=== PATIENT | female | born 1970 | race Caucasian/White ===

== ENCOUNTER 2020-05-27 10:52 | Emergency (ER) | payer MEDICAID ==
[~2020-05-27] VITALS: Ht 165.1 cm; Wt 62.0 kg
[2020-05-27] MEDS ORDERED: KETOROLAC 30MG/ML VIAL IM ONE (12:30)
[2020-05-27 13:30] VITALS: BP 111/72
[2020-06-05] MEDS ORDERED: IBUP-1523 MT (12:51)
== END 2020-05-27 13:47 | disposition home or self-care (01) ==
LOC: ER 10:52
DX: M77.32 Calcaneal spur, left foot (principal)
CPT/HCPCS: 71045; 73630; 81025; 96372; 99284; J1885

== ENCOUNTER 2020-11-21 10:59 | Emergency (ER) | payer MEDICAID ==
[~2020-11-21] VITALS: Ht 152.4 cm; Wt 55.0 kg
[~2020-11-21 10:59] MED LIST: IBUP-1523 MT
[2020-11-21] MEDS ORDERED: KETOROLAC 60MG/2ML VIAL IM ONE (11:15)
[2020-11-21 11:53] VITALS: BP 132/107
[2020-11-21 12:14] LABS: CLARITY URINE CLEAR (CLEAR); COLOR URINE YELLOW (YELLOW); KETONES URINE NEGATIVE (NEGATIVE); LEUKOCYTE ESTERASE URINE NEGATIVE (NEGATIVE); NITRITE URINE NEGATIVE (NEGATIVE); OCCULT BLOOD URINE NEGATIVE (NEGATIVE); PROTEIN URINE NEGATIVE (NEGATIVE); SPECIFIC GRAVITY URINE 1.047 (1.005-1.030); UROBILINOGEN URINE 0.2 E.U./dL (0.2-1.0)
[2020-11-21 12:27] LABS: BASOPHILS % 0.7 % (0.0-2.0); EOSINOPHILS % 0.9 % (0.0-5.0); HEMATOCRIT. 40.3 % (36.0-48.0); HEMOGLOBIN. 13.7 g/dL (12.0-16.0); LYMPHOCYTES % 25.8 % (20.0-50.0); MEAN CORPUSCULAR HEMOGLOBIN 30.7 pg (28.0-32.0); MEAN CORPUSCULAR VOLUME 90.2 fL (81.0-99.0); MEAN PLATELET VOLUME 8.4 fl (7.4-10.4); MONOCYTES % 8.1 % (2.0-8.0); NEUTROPHILS % 64.5 % (40.0-76.0); PLATELET 243 x1000/uL (130-400); RED BLOOD CELL COUNT 4.46 mill/uL (4.2-5.4); RED CELL DISTRIBUTION WIDTH 13.7 % (11.6-14.6)
[2020-11-21] MEDS ORDERED: IBUP-2028 MT (15:15)
== END 2020-11-21 15:32 | disposition home or self-care (01) ==
LOC: ER 10:59
DX: N23 Unspecified renal colic (principal); Z87.442 Personal history of urinary calculi; Z90.710 Acquired absence of both cervix and uterus
CPT/HCPCS: 36415; 74176; 80048; 81003; 81025; 85025; 87086; 96372; 99284; J1885

== ENCOUNTER 2020-11-22 21:16 | Emergency (ER) | payer MEDICAID ==
[~2020-11-22] VITALS: Ht 154.9 cm; Wt 71.0 kg
[~2020-11-22 21:16] MED LIST changes: +IBUP-2028 MT
[2020-11-22 23:30] LABS: CLARITY URINE CLOUDY (CLEAR); COLOR URINE YELLOW (YELLOW); KETONES URINE NEGATIVE (NEGATIVE); LEUKOCYTE ESTERASE URINE 2+ (NEGATIVE); NITRITE URINE NEGATIVE (NEGATIVE); OCCULT BLOOD URINE NEGATIVE (NEGATIVE); PROTEIN URINE NEGATIVE (NEGATIVE); SPECIFIC GRAVITY URINE 1.017 (1.005-1.030)
[2020-11-22] MEDS ORDERED: KETOROLAC 30MG/ML VIAL IM ONE (23:30)
[2020-11-23] MEDS ORDERED: CEFTRIAXONE 1 G PREMIX 50 ML IV ONE
[2020-11-23 00:02] VITALS: BP 151/86
[2020-11-23] MEDS ORDERED: LIDOCAINE HCL 1% 20ML VIAL (Pyxis) INJ INFIL ONE (00:30)
[2020-11-23] MEDS ORDERED: CEFTRIAXONE SODIUM 1 G/VIAL IM ONE (00:30)
[2020-11-23] MEDS ORDERED: CIPR-263 MT (01:40)
[2020-11-23] MEDS ORDERED: ACETAMINOPHEN 325MG TABLET PO ONE (01:45)
== END 2020-11-23 02:13 | disposition home or self-care (01) ==
LOC: ER 21:16
DX: N10 Acute pyelonephritis (principal); Z90.710 Acquired absence of both cervix and uterus; Z98.890 Other specified postprocedural states
CPT/HCPCS: 81003; 81025; 96372; 99284; J0696; J1885; J3490

== ENCOUNTER 2020-12-07 16:36 | Emergency (ER) | payer MEDICAID ==
[~2020-12-07] VITALS: Ht 152.4 cm; Wt 55.0 kg
[~2020-12-07 16:36] MED LIST changes: -IBUP-1523 MT; -IBUP-2028 MT; +OMEP40CA12 MT; +SUCR1TAB30 PO
[2020-12-07] MEDS ORDERED: MAGNESIUM/ALUMINUM HYDROXIDE/SIMETHICONE 30ML UDC PO STA (16:54)
[2020-12-07] MEDS ORDERED: ACETAMINOPHEN 325MG TABLET PO ONE (17:00)
[2020-12-07 17:20] LABS: CLARITY URINE CLEAR (CLEAR); COLOR URINE YELLOW (YELLOW); KETONES URINE NEGATIVE (NEGATIVE); LEUKOCYTE ESTERASE URINE TRACE (NEGATIVE); NITRITE URINE NEGATIVE (NEGATIVE); OCCULT BLOOD URINE NEGATIVE (NEGATIVE); PROTEIN URINE NEGATIVE (NEGATIVE); SPECIFIC GRAVITY URINE 1.007 (1.005-1.030); UROBILINOGEN URINE 0.2 E.U./dL (0.2-1.0)
[2020-12-07 18:48] VITALS: BP 135/87
== END 2020-12-07 19:50 | disposition home or self-care (01) ==
LOC: ER 16:41
DX: R10.9 Unspecified abdominal pain (principal); Z90.710 Acquired absence of both cervix and uterus
CPT/HCPCS: 81003; 81025; 99283

== ENCOUNTER 2021-07-18 15:31 | Emergency (ER) | payer MEDICAID ==
[~2021-07-18] VITALS: Ht 154.9 cm; Wt 68.0 kg
[~2021-07-18 15:31] MED LIST changes: -OMEP40CA12 MT; +OMEP40CA20 MT
[2021-07-18 15:39] VITALS: BP 119/73
[2021-07-18 17:35] LABS: CLARITY URINE CLEAR (CLEAR); COLOR URINE YELLOW (YELLOW); KETONES URINE TRACE (NEGATIVE); LEUKOCYTE ESTERASE URINE TRACE (NEGATIVE); NITRITE URINE NEGATIVE (NEGATIVE); OCCULT BLOOD URINE NEGATIVE (NEGATIVE); PH URINE 5.5 (4.5-8.0); PROTEIN URINE NEGATIVE (NEGATIVE); SPECIFIC GRAVITY URINE 1.023 (1.005-1.030); UROBILINOGEN URINE 0.2 E.U./dL (0.2-1.0)
[2021-07-18] MEDS ORDERED: SULF1TAB48 MT (17:54)
[2021-07-18] MEDS ORDERED: PYR200 PO (17:54)
[2021-07-18] MEDS ORDERED: HYDR-4622 TP (17:54)
[2021-07-18] MEDS ORDERED: NAPR-681 PO (17:54)
== END 2021-07-18 18:31 | disposition home or self-care (01) ==
LOC: ER 15:31
DX: S40.861A Insect bite (nonvenomous) of right upper arm, initial encounter (principal); N39.0 Urinary tract infection, site not specified; W57.XXXA Bitten or stung by nonvenomous insect and other nonvenomous arthropods, initial encounter; Y93.89 Activity, other specified; Y92.89 Other specified places as the place of occurrence of the external cause; Y99.8 Other external cause status
CPT/HCPCS: 81003; 99283

== ENCOUNTER 2023-11-09 09:13 | Emergency (ER) | payer MEDICAID ==
[~2023-11-09] VITALS: Ht 157.5 cm; Wt 70.0 kg
[~2023-11-09 09:13] MED LIST changes: +HYDR-4622 TP; +NAPR-681 PO; +PYR200 PO; +SULF1TAB48 MT
[2023-11-09 09:19] VITALS: O2SAT 100
[2023-11-09] MEDS: KETOROLAC 30MG/ML VIAL IM ONE (10:00)
[2023-11-09] MEDS ORDERED: IBUP-2029 PO (11:40)
[2023-11-09 12:05] VITALS: BP 128/66; PULSE 68; RESP 16; TEMP 97.7
== END 2023-11-09 12:14 | disposition home or self-care (01) ==
LOC: ER 09:13
DX: M79.662 Pain in left lower leg (principal); Z98.890 Other specified postprocedural states; Z90.710 Acquired absence of both cervix and uterus
CPT/HCPCS: 99285; 93971; 81025; 96372; J1885

== ENCOUNTER 2023-11-15 09:02 | Emergency (ER) | payer MEDICAID ==
[~2023-11-15] VITALS: Ht 157.5 cm; Wt 59.0 kg
[~2023-11-15 09:02] MED LIST changes: +IBUP-2029 PO
[2023-11-15 09:17] VITALS: O2SAT 100
[2023-11-15] MEDS: IBUPROFEN 600MG TABLET PO ONE (10:25)
[2023-11-15] MEDS: ACETAMINOPHEN 325MG TABLET PO ONE (10:26)
[2023-11-15] MEDS: PREDNISONE 20MG TABLET PO ONE (13:15)
[2023-11-15] MEDS ORDERED: TOPUD MT (14:36)
[2023-11-15] MEDS ORDERED: P50 MT (14:36)
[2023-11-15] MEDS ORDERED: IBUP-2029 PO (14:36)
[2023-11-15 15:18] VITALS: BP 114/52; PULSE 77; RESP 18; TEMP 98.2
== END 2023-11-15 15:28 | disposition home or self-care (01) ==
LOC: ER 09:33
DX: M54.40 Lumbago with sciatica, unspecified side (principal); M46.96 Unspecified inflammatory spondylopathy, lumbar region; Z90.710 Acquired absence of both cervix and uterus; Z79.899 Other long term (current) drug therapy
CPT/HCPCS: 99284; 81025; 72100; J7512

== ENCOUNTER 2024-06-18 23:39 | Emergency (ER) | payer MEDICAID ==
[~2024-06-18] VITALS: Ht 165.1 cm; Wt 84.2 kg
[~2024-06-18 23:39] MED LIST changes: +P50 MT; +TOPUD MT
[2024-06-19 00:26] VITALS: O2SAT 99
[2024-06-19] MEDS: HYDROCODONE/ACETAMINOPHEN 5/325MG TABLET PO ONE (01:20)
[2024-06-19] MEDS ORDERED: HYDR-4001 MT (03:47)
[2024-06-19 04:00] VITALS: BP 135/86; PULSE 69; RESP 17; TEMP 36.55848; O2SAT 99
== END 2024-06-19 04:15 | disposition home or self-care (01) ==
LOC: ER 23:39
DX: S80.11XA Contusion of right lower leg, initial encounter (principal); Z79.899 Other long term (current) drug therapy; Z90.710 Acquired absence of both cervix and uterus; W18.30XA Fall on same level, unspecified, initial encounter; Y93.89 Activity, other specified; Y92.89 Other specified places as the place of occurrence of the external cause; Y99.8 Other external cause status
CPT/HCPCS: 72192; 73502; 73590; 99284